=== PATIENT | female | born 1965 | race African-American/Black ===

== ENCOUNTER 2017-10-30 20:07 | Emergency (ER) | payer OTHER | END 2017-10-30 20:52 | disposition home or self-care (01) | LOC: ERS 20:07 | DX: K64.8 Other hemorrhoids (principal); M79.631 Pain in right forearm; F17.210 Nicotine dependence, cigarettes, uncomplicated | CPT/HCPCS: 99283 ==

== ENCOUNTER 2018-05-15 21:57 | Emergency (ER) | payer OTHER ==
[~2018-05-15 21:57] MED LIST: Iopamidol 370 76% 100 ML VIAL ONE
[2018-05-15] MEDS ORDERED: Ondansetron PF 4 MG/2 ML Vial ONE (22:21)
[2018-05-15] MEDS ORDERED: Morphine 4 MG/ML VIAL ONE (22:21)
--- NOTE | 2018-05-15 23:08 | CT ---
CT ABDOMEN AND PELVIS WITH IV CONTRAST 05/15/18 HISTORY: Rectal bleeding for two to three days which is now increased. Abdominal pain. COMPARISON: 02/29/08. FINDINGS: There is bibasilar dependent atelectasis. Calcified granuloma is seen at the left lung base. Post cholecystectomy changes are noted. The liver, spleen, pancreas, bilateral adrenal glands, kidneys, urinary bladder, and uterus demonstra te a normal CT appearance. Mild vascular calcifications are seen in the abdominal aorta and involving the iliac arteries. The appendix is visualized and normal in caliber. Loops of small bowel are also normal in caliber. No free fluid, fluid collection or lymphadenopathy is seen in the abdomen or pelvis. However, a view mildly prominent lymph nodes are seen adjacent to the distal esophagus. Largest measu ring 8 mm in short axis dimension. Degenerative changes seen at the lumbosacral junction. IMPRESSION: 1. No acute findings are seen in the abdomen or pelvis. 2. No CT evidence of appendicitis. 3. Postcholecystectomy changes. 4. Nonspecific mildly prominent lymph nodes adjacent to the distal esophagus and GE junction. POS: [facility]
== END 2018-05-15 23:50 | disposition home or self-care (01) ==
LOC: ERS 21:57
DX: K62.5 Hemorrhage of anus and rectum (principal); F17.210 Nicotine dependence, cigarettes, uncomplicated
CPT/HCPCS: 74177; 96374; 96375; J2270; J2405

== ENCOUNTER 2020-09-30 01:52 | Observation (INO) | payer OTHER ==
[2020-09-30 03:56] VITALS: BMI 26.9
[2020-09-30] MEDS ORDERED: Ondansetron ODT 4 MG TAB PO PRN (08:03)
[2020-09-30] MEDS ORDERED: Senokot S 8.6-50 MG TAB PO PRN (08:03)
[2020-09-30 08:09] LABS: SARS-CoV-2 NAA Rapid Test Not Detected (NotDetected)
[2020-09-30] MEDS: NS 0.9% w/ 20 MEQ KCL 1,000 ML/1,000 ML BAG IV SCH (09:41)
[2020-09-30] MEDS: Famotidine 20 MG TAB PO SCH ×2 (09:42→19:52)
[2020-09-30 10:08] LABS: #Basophils 0.1 thou/uL (0.0-0.2); #Eosinphils 0.1 thou/uL (0.0-0.7); #Lymphocytes 3.1 thou/uL (1.20-3.40); #Neutrophils 5.9 thou/uL (1.40-6.50); %Basophils 1.1 % (0.0-1.0); %Eosinophils 1.3 % (0.0-10.0); %Lymphocytes 30.2 % (21.0-51.0); %Monocytes 9.8 % (0.0-10.0); %Neutrophils 57.7 % (42.0-75.0); Hemoglobin 12.6 g/dL (12.0-16.0); Mean Corpuscular HGB CONC 33.4 g/dL (32.0-36.0); Mean Corpuscular Volume 92.7 fL (78.0-98.0); Mean Platelet Volume 8.8 fL (7.4-10.4); Platelet Count 299 thou/uL (130-400); RBC Distribution Width 13.6 % (11.5-14.5); Red Blood Cell (RBC) Count 4.05 mill/uL (4.20-5.40); White Blood Cell (WBC) Count 10.2 thou/uL (4.8-10.8)
[2020-09-30 10:27] LABS: ALT (SGPT) Less than 7 U/L (8-55); AST (SGOT) 11 U/L (5-34); Albumin 3.7 g/dL (3.5-5.0); Alkaline Phosphatase 98 U/L (40-110); Anion Gap 13 mmol/L (10-20); BUN (Urea Nitrogen) 20 mg/dL (9.8-20.1); Bilirubin, Total 0.9 mg/dL (0.2-1.2); Calc. Creatinine Clearance 94 mL/min (70-130); Carbon Dioxide 23 mmol/L (22-29); Chloride 108 mmol/L (98-107); Globulin 3.4 g/dL (2.4-3.5); Glucose 90 mg/dL (70-105); Potassium 3.5 mmol/L (3.5-5.1); Protein, Total 7.1 g/dL (6.0-8.3); Sodium 140 mmol/L (136-145)
[2020-09-30] MEDS: Acetaminophen 325 MG TAB PO PRN ×2 (14:34→15:37)
[2020-09-30] MEDS: Ketorolac Tromethamine 30 MG/ML VIAL IVP PRN (19:53)
[2020-10-01] MEDS: Acetaminophen/Codeine 30-300mg Tablet PO PRN ×2 (01:08→08:47)
[2020-10-01] MEDS: NS 0.9% w/ 20 MEQ KCL 1,000 ML/1,000 ML BAG IV SCH (03:21)
[2020-10-01] MEDS: Ketorolac Tromethamine 30 MG/ML VIAL IVP PRN (03:22)
[2020-10-01 04:24] LABS: #Basophils 0.1 thou/uL (0.0-0.2); #Eosinphils 0.2 thou/uL (0.0-0.7); #Lymphocytes 2.9 thou/uL (1.20-3.40); #Monocytes 0.7 thou/uL (0.11-0.59); #Neutrophils 3.2 thou/uL (1.40-6.50); %Basophils 1.8 % (0.0-1.0); %Eosinophils 2.2 % (0.0-10.0); %Lymphocytes 41.6 % (21.0-51.0); %Monocytes 9.7 % (0.0-10.0); %Neutrophils 44.7 % (42.0-75.0); Hemoglobin 10.8 g/dL (12.0-16.0); Mean Corpuscular HGB CONC 33.2 g/dL (32.0-36.0); Mean Corpuscular Volume 93.3 fL (78.0-98.0); Mean Platelet Volume 8.9 fL (7.4-10.4); Platelet Count 259 thou/uL (130-400); RBC Distribution Width 13.2 % (11.5-14.5); Red Blood Cell (RBC) Count 3.49 mill/uL (4.20-5.40); White Blood Cell (WBC) Count 7.1 thou/uL (4.8-10.8)
[2020-10-01 04:48] LABS: ALT (SGPT) Less than 7 U/L (8-55); AST (SGOT) 8 U/L (5-34); Albumin 3.1 g/dL (3.5-5.0); Alkaline Phosphatase 88 U/L (40-110); Anion Gap 12 mmol/L (10-20); BUN (Urea Nitrogen) 22 mg/dL (9.8-20.1); Bilirubin, Total 0.4 mg/dL (0.2-1.2); Calc. Creatinine Clearance 91 mL/min (70-130); Calcium 8.3 mg/dL (7.8-10.44); Carbon Dioxide 24 mmol/L (22-29); Chloride 109 mmol/L (98-107); Globulin 2.9 g/dL (2.4-3.5); Glucose 100 mg/dL (70-105); Potassium 3.8 mmol/L (3.5-5.1); Sodium 141 mmol/L (136-145)
[2020-10-01] MEDS: Famotidine 20 MG TAB PO SCH (08:47)
[2020-10-01 15:34] VITALS: BP 109/73; TEMP 98.9
== END 2020-10-01 16:12 | disposition home or self-care (01) ==
LOC: 2SW 01:52 → 2NO 04:31
PROVIDERS: ADMIT Student in an Organized Health Care Education/Training Program; ATTEND Family Medicine
DX: R55 Syncope and collapse (principal); R10.84 Generalized abdominal pain; R53.1 Weakness; R19.7 Diarrhea, unspecified; F17.210 Nicotine dependence, cigarettes, uncomplicated; E86.9 Volume depletion, unspecified; E87.6 Hypokalemia; F14.10 Cocaine abuse, uncomplicated; F12.10 Cannabis abuse, uncomplicated; R45.89 Other symptoms and signs involving emotional state; Z20.822 Contact with and (suspected) exposure to COVID-19
CPT/HCPCS: 0240U; 36415; 80053; 82140; 82550; 83735; 85025; 96374; 96376; G0378; J1885; J3480